=== PATIENT | female | born 2000 | race Caucasian/White ===

== ENCOUNTER 2022-05-01 14:11 | Emergency (ER) | payer OTHER ==
[~2022-05-01] VITALS: Ht 167.6 cm; Wt 94.3 kg
[~2022-05-01 14:11] MED LIST: RALTEGRAVIR 400 MG TAB (ISENTRESS) PO SCH; TRUVADA 200MG/300MG TABLET PO SCH
[2022-05-01] MEDS ORDERED: ZOLO25TA PO (14:23)
[2022-05-01] MEDS ORDERED: TOPA50TA8 PO (14:23)
[2022-05-01] MEDS ORDERED: EXPOSURE KIT-ADULT 7 DAY SUPPLY PO ONE (15:15)
[2022-05-01] MEDS ORDERED: TETANUS IMMUNE GLOBULIN (HUMAN) 250 UNITS/ML SYRINGE IM.IMMUN ONE (15:15)
[2022-05-01] MEDS ORDERED: HEPATITIS B VACCINE 20MCG/ML 1ML SYRINGE (ADULT DOSE) IM.IMMUN ONE (15:15)
[2022-05-01] MEDS ORDERED: LIDOCAINE 1% SDV 5ML VIAL DILUENT ONE (15:15)
[2022-05-01] MEDS ORDERED: cefTRIAXone 500MG VIAL IM ONE (15:15)
[2022-05-01] MEDS ORDERED: ULIPRISTAL ACETATE 30MG TAB (ELLA) PO ONE (15:15)
[2022-05-01] MEDS ORDERED: AZITHROMYCIN 250MG TABLET PO ONE (15:15)
[2022-05-01] MEDS ORDERED: metroNIDAZOLE (FLAGYL) 500MG TABLET PO ONE (15:15)
[2022-05-01] MEDS ORDERED: RALT40TA PO (15:19)
[2022-05-01] MEDS ORDERED: EMTR1TAB16 PO (15:19)
[2022-05-01] MEDS ORDERED: TRUVADA 200MG/300MG TABLET PO ONE (15:35)
[2022-05-01] MEDS ORDERED: RALTEGRAVIR 400 MG TAB (ISENTRESS) PO ONE (15:35)
[2022-05-01 16:22] LABS: BASO # 0.1 10^3/uL (0.0-0.2); BASO % 0.4 % (0.0-1.0); EOS % 0.3 % (0.0-3.0); HEMATOCRIT 47.3 % (36.0-47.0); HEMOGLOBIN 15.2 g/dl (12.0-15.5); LYMPH # 1.9 10^3/uL (1.5-5.0); LYMPH % 16.7 % (24.0-44.0); MEAN CORPUSCULAR HEMOGLOBIN 28.1 pg (27.0-33.0); MEAN CORPUSCULAR HGB CONC 32.1 g/dl (32.0-36.5); MEAN CORPUSCULAR VOLUME 87.6 fl (80.0-96.0); MONO # 0.8 10^3/uL (0.0-0.8); MONO % 6.6 % (2.0-8.0); NEUTROPHILS # 8.7 10^3/uL (1.5-8.5); NEUTROPHILS % 75.7 % (36.0-66.0); PLATELET COUNT, AUTOMATED 428 10^3/uL (150-450); WHITE BLOOD COUNT 11.5 10^3/uL (4.0-10.0)
[2022-05-01 17:12] LABS: ALKALINE PHOSPHATASE 111 U/L (46-116); ALT/SGPT 22 U/L (7.0-40); AST/SGOT 22 U/L (<34); BILIRUBIN,TOTAL 0.6 MG/DL (0.3-1.2); BLOOD UREA NITROGEN 14 MG/DL (9-23); CALCIUM LEVEL 9.3 MG/DL (8.5-10.1); CARBON DIOXIDE LEVEL 25 MMOL/L (20-31); CHLORIDE LEVEL 106 MMOL/L (98-107); CREATININE FOR GFR 0.84 MG/DL (0.55-1.30); GLUCOSE, FASTING 88 MG/DL (60-100); POTASSIUM SERUM 4.2 MMOL/L (3.5-5.1); SODIUM LEVEL 140 MMOL/L (136-145)
[2022-05-01 17:46] LABS: HEPATITIS B SURFACE ANTIBODY POSITIVE (POSITIVE); HEPATITIS B SURFACE ANTIGEN NEGATIVE (NEGATIVE)
[2022-05-01] MEDS ORDERED: ONDANSETRON 4MG ORAL DISINTEGRATING TAB PO ONE ×2 (17:55)
[2022-05-01 18:22] LABS: TOTAL PROTEIN 7.6 G/DL (5.7-8.2)
[2022-05-01 18:28] LABS: HIV 1&2 SCREEN CENTAUR NEGATIVE (NEGATIVE)
[2022-05-01 18:50] LABS: HCG, SERUM QUALITATIVE NEGATIVE (NEGATIVE)
[2022-05-01 21:46] VITALS: BP 117/73
[2022-05-01] MEDS ORDERED: DOXY100C81 PO (23:31)
[2022-05-02] MEDS ORDERED: METR-265 PO (07:01)
== END 2022-05-02 01:15 | disposition home or self-care (01) ==
LOC: M ED 14:11
DX: T76.21XA Adult sexual abuse, suspected, initial encounter (principal); E28.2 Polycystic ovarian syndrome; F32.A Depression, unspecified; F10.10 Alcohol abuse, uncomplicated; Z79.899 Other long term (current) drug therapy
CPT/HCPCS: 80053; 84703; 85025; 86706; 86780; 86803; 87070; 87081; 87110; 87210; 87340; 87389; 87529; 90471; 90472; 90746; 96372; 99283; J0696; J1670